=== PATIENT | male | born 1955 | race Caucasian/White ===

== ENCOUNTER → 2023-12-05 15:55 | Outpatient (REF) | payer OTHER, MEDICARE, SELFPAY | LOC: RAD 15:55 | PROVIDERS: ATTENDING PHYSICIAN Physician Assistant; FAMILY PHYSICIAN Family Medicine | DX: M25.561 Pain in right knee (principal) | CPT/HCPCS: 73564 ==

== ENCOUNTER → 2024-07-15 12:51 | Outpatient (REF) | payer OTHER, SELFPAY | LOC: RCS 12:51 | PROVIDERS: ATTENDING PHYSICIAN Family Medicine | DX: Z01.818 Encounter for other preprocedural examination (principal); R94.31 Abnormal electrocardiogram [ECG] [EKG]; I77.810 Thoracic aortic ectasia; I51.89 Other ill-defined heart diseases; I10 Essential (primary) hypertension | CPT/HCPCS: 93017 ==

== ENCOUNTER → 2024-07-15 15:54 | Outpatient (REF) | payer OTHER, SELFPAY | LOC: HWRCS 15:54 | PROVIDERS: ATTENDING PHYSICIAN Family Medicine | DX: Z01.818 Encounter for other preprocedural examination (principal); R94.31 Abnormal electrocardiogram [ECG] [EKG]; I77.810 Thoracic aortic ectasia; I51.89 Other ill-defined heart diseases; I10 Essential (primary) hypertension | CPT/HCPCS: 93306 ==

== ENCOUNTER 2024-07-22 05:59 | Day surgery (SDC) | payer OTHER, SELFPAY ==
--- NOTE | 2024-07-11 12:15 | CM ---
Cm reviewed medical records. CM spoke with patient via phone. Patient confirmed demographics. Patient lives independently with . Patient confirmed that he does not have ahistory of VN< SNF or DME. Patient is active with his PCP and stated that
he needs to follow up with further clearance testing. Patient has medication coverage.
PLAN: HOme with as support, and VN.
[2024-07-16 14:05] VITALS: BMI 27.0
[2024-07-16 14:37] LABS: Hematocrit 41.2 % (39.0-52.0); Hemoglobin 13.8 g/dL (13.0-18.0); Mean Corp Hgb Conc. 33.5 g/dL (33.0-37.0); Mean Corpuscular Hgb 28.5 pg (27.0-31.0); Mean Corpuscular Volume 84.9 fL (80.0-94.0); Mean Platelet Volume 10.5 fL (7.4-10.4); Platelet Count 180 10^3/uL (130-400); Red Blood Cell Count 4.85 10^6/uL (4.70-6.10); Red Cell Dist. Width 13.3 % (11.5-14.5); White Blood Cell Count 5.6 10^3/uL (4.8-10.8)
[2024-07-16 14:58] LABS: ALT (SGPT) 18 U/L (0-50); AST (SGOT) 23 U/L (17-59); Albumin 4.2 g/dl (3.5-5.0); Alkaline Phosphatase 70 U/L (38-126); Blood Urea Nitrogen 21 mg/dl (9-20); Calcium 9.4 mg/dl (8.4-10.2); Carbon Dioxide 28 mmol/L (22-30); Chloride 109 mmol/L (98-107); Estimated Creatinine Clearance 61 ml/min; Glucose 93 mg/dl (70-99); Potassium 4.2 mmol/L (3.5-5.1); Sodium 141 mmol/L (135-145); Total Bilirubin 0.5 mg/dl (0.2-1.3); Total Protein 6.6 g/dl (6.3-8.2); eGFR > 60.00
[2024-07-16 18:02] VITALS: BMI 27.0
[2024-07-17 09:05] LABS: Glycohemoglobin (HgbA1c) 5.5 % (4.0-5.6)
--- NOTE | 2024-07-17 15:29 | VNURNOTE ---
Patient is scheduled for an elective R TKR on 07/22- he is a same day patient with Dr Cervantes. Spoke with patient prior to surgery. Introduced role of [facility] Liaison. Patient reports that he lives with his in a [place] home
There are 3 steps to enter
He has a cane and a rolling walker.
PCP is Dr Cristiane Washington
Discussed [facility] joint protocol and post surgical plans.
Reviewed that he will have VN services initially and will then start outpatient PT.
Patient selects [facility] for his home care needs and will go to outpatient PT. He stated his spouse set up outpt PT for end of the week of surgery-either 07/25 or 07/26.
Patient is in agreement with plan and states that his will be home with him. Advised to bring RW with him day of surgery. Referral placed in [facility].
Plan: [facility] per [facility] joint protocol then outpt PT Th or Mon of surgical week.
[2024-07-22] VITALS (14 sets, daily range): BP systolic 85–126; BP diastolic 69–80; PULSE 73; O2SAT 96
[2024-07-22] MEDS: TYLENOL 650 MG PO (06:28)
[2024-07-22] MEDS: CELEBREX 200 MG PO (06:28)
[2024-07-22] MEDS: BACTROBAN NASAL 1 GRAM NASAL (06:30)
[2024-07-22] MEDS: NORMOSOL-R/PLASMALYTE-A 1000 IV (06:41)
--- NOTE | 2024-07-22 06:59 | W.DS.TRANS ---
DC Summary - Harmonica Maker
-
Discharge Instructions:
Sleep Apnea Risk Low
Discharge Diagnosis/Procedures R TKA 07/22/24
Diet As tolerated
Additional Diets Adequate hydration, minimize Oxy and wear TEDs
stockings to prevent low blood pressure/
dizziness
Activity With Walker
Additional Activity USE VENOUS COMPRESSION DEVICE AT ALL TIMES WHEN
SLEEPING AND SITTING FOR PROLONGED PERIODS
Driving Restrictions No driving
Bathing Restrictions OK to Shower
Other Services PT
Instructions:
Stand-Alone Forms: SDS Total Hip and Knee D/C
Changes to Home Medications: Yes
Discharge Medications:
DC Medications w/original date entered in [email or web address] Sterols 2 gummy PO BID 01/30/23
pantoprazole 40 mg tablet,delayed release 40 mg PO DAILY #30 tabs 02/02/23
triamcinolone acetonide 55 mcg nasal spray aerosol (Nasacort) 1 spray intranasal DAILY 07/15/24
dexamethasone 4 mg tablet 4 mg PO BID inflammation #6 tabs 07/16/24
gabapentin 300 mg capsule 300 mg PO HS sleep/pain #10 caps 07/16/24
mupirocin 2 % topical ointment 1 applic topical BID infection prevention #1 tube 07/16/24
oxycodone 5 mg tablet 5 mg PO Q6H PRN 1 tab moderate pain, 2 tabs severe pain #30 tabs 07/16/24
cefadroxil 500 mg capsule 500 mg PO BID infection prevention #14 caps 07/18/24
Saccharomyces boulardii 250 mg capsule (Florastor) 250 mg PO BID #1 cap 07/22/24
acetaminophen 325 mg tablet (Tylenol) 650 mg (2 x 325 mg) PO QID #1 tab 07/22/24
apixaban 2.5 mg tablet (Eliquis) 2.5 mg PO BID Blood clot prevention/tx #90 tabs 07/22/24
docusate sodium 100 mg capsule (Colace) 100 mg PO BID stool softner #1 cap 07/22/24
magnesium hydroxide 400 mg/5 mL oral suspension (Milk of Magnesia) 30 ml PO HS PRN constipation #1 mL 07/22/24
polyethylene glycol 3350 17 gram oral powder packet (Miralax) 17 g PO DAILY #0 ea 07/22/24
sennosides 8.6 mg tablet (Senokot) 17.2 mg (2 x 8.6 mg) PO BID laxative #2 tabs 07/22/24
Home Medication Changes
dexamethasone 4 mg tablet 4 mg PO BID inflammation #6 tabs 07/16/24
gabapentin 300 mg capsule 300 mg PO HS sleep/pain #10 caps 07/16/24
mupirocin 2 % topical ointment 1 applic topical BID infection prevention #1 tube 07/16/24
oxycodone 5 mg tablet 5 mg PO Q6H PRN 1 tab moderate pain, 2 tabs severe pain #30 tabs 07/16/24
cefadroxil 500 mg capsule 500 mg PO BID infection prevention #14 caps 07/18/24
Saccharomyces boulardii 250 mg capsule (Florastor) 250 mg PO BID #1 cap 07/22/24
acetaminophen 325 mg tablet (Tylenol) 650 mg (2 x 325 mg) PO QID #1 tab 07/22/24
apixaban 2.5 mg tablet (Eliquis) 2.5 mg PO BID Blood clot prevention/tx #90 tabs 07/22/24
docusate sodium 100 mg capsule (Colace) 100 mg PO BID stool softner #1 cap 07/22/24
magnesium hydroxide 400 mg/5 mL oral suspension (Milk of Magnesia) 30 ml PO HS PRN constipation #1 mL 07/22/24
polyethylene glycol 3350 17 gram oral powder packet (Miralax) 17 g PO DAILY #0 ea 07/22/24
sennosides 8.6 mg tablet (Senokot) 17.2 mg (2 x 8.6 mg) PO BID laxative #2 tabs 07/22/24
Pending Results: No
[2024-07-22] MEDS: ANCEF 5 IV (11:05)
[2024-07-22] MEDS: ROXICODONE 5 MG PO (11:33)
--- NOTE | 2024-07-22 12:56 | W.PN.ORTHO ---
Today's Communication / Plan
-
d/c
Assessment
.
Distal Motor Intact: Yes
Dressing:
Clean, dry and intact.
Assessment:
Hx PE/DVT-provoked
Plan
.
Surgery / Date: R TKA 07/22/24
DVT Prophylaxis: Other (Eliquis + SCD)
Activity:
Out of bed.
PT/OT
Discharge Plan: Home w/ Outpatient PT
Subjective
.
.:
Patient resting comfortably in SDS
Vital Signs and Labs
.
Vital Signs and Labs:
Lab Results
07/16/24 13:42
07/16/24 13:42
Temp Pulse Resp BP Pulse Ox
97.5 F 71 18 119/74 96
07/22/24 11:10 07/22/24 11:50 07/22/24 11:50 07/22/24 11:50 07/22/24 11:50
Physical Exam
-
HEENT: No pallor, cyanosis, or jaundice. Throat clear.
NECK: Supple. No JVD.
RESPIRATORY: Lungs clear to auscultation.
CVS: S1, S2 normal. RRR.� No murmur, rub or gallop.
ABDOMEN: Soft, non-tender. No distension. BS+/normal.
EXTREMITIES: strength equal, no calf pain with palpation
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 No focal deficits. 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
== END 2024-07-22 12:00 | disposition home or self-care (01) ==
LOC: SDS 05:59
PROVIDERS: ATTENDING PHYSICIAN Specialist; FAMILY PHYSICIAN Family Medicine; REFERRING PHYSICIAN Internal Medicine Hematology
DX: M17.11 Unilateral primary osteoarthritis, right knee (principal)
CPT/HCPCS: 27447; C1776; 36415; 73560; 80053; 83036; 85027; 87070; 93005; 97162; 97530; C1713